=== PATIENT | female | born 1995 ===

== ENCOUNTER 2020-09-04 06:00 | Day surgery (SDC) | payer OTHER | END 2020-09-04 13:50 | disposition home or self-care (01) | LOC: CIR.AMB 06:00 | PROVIDERS: ATTEND Orthopaedic Surgery Hand Surgery | DX: S62.323A Displaced fracture of shaft of third metacarpal bone, left hand, initial encounter for closed fracture (principal); S62.397A Other fracture of fifth metacarpal bone, left hand, initial encounter for closed fracture; Z20.828 Contact with and (suspected) exposure to other viral communicable diseases ==